=== PATIENT | male | born 2000 | race Caucasian/White ===

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

== ENCOUNTER 2020-04-08 10:49 | Emergency (ER) | payer OTHER, SELFPAY ==
[2020-04-08 11:00] VITALS: BP 182/90; PULSE 96; RESP 20; TEMP 37.2; O2SAT 100; BMI 35.9
--- NOTE | 2020-04-08 11:23 | HMH.EDUTC ---
[facility] [place] Clinical Impression: Encounter for laboratory testing for COVID-19 virus, Viral syndrome Disposition: Home, Self-Care Condition on Discharge: Good Instructions: DI for COVID-19 (Suspected or Confirmed ), Coronavirus Disease 2019, Preventing the Spread of Coronavirus Discharge Instructions Additional Instructions: *Monitor Temp, Over the counter Motrin or Tylenol as directed/as needed Tylenol every 4 hours and Motrin every 6 hours (as long as your family doctor has told you that you can take it) for fever or pain. and straight to ER if unable to lower temp less than 101.0 after medication given *Warm salt water gargles may help to soothe the throat *Throat Lozenges *Warm fluids like tea with honey may help to soothe the throat *Sleep elevated *Humidifier/Vaporizer Follow up IMMEDIATELY for new or worsening symptoms or no Noticeable improvement over the next 48-72 hours. 911 for difficulty breathing or swallowing You were tested for today for COVID19 your test result should be back in the next 24-48 hours, you may call to the [facility] to see if your test results are back in the next 48 hours [phone] [facility] hours are 9am-9pm You was given a handout with instructions for Self Quarantine and Self isolation for while you wait on test results and what to do if they are positive If you are positive the Health Dept will be contacting you also Your blood pressure was elevated in the [facility] make sure to follow up with your Family Doctor for re-evaluation Referrals: PCP,No [Primary Care Provider] - As needed Forms: Work/School Release Time of Disposition: 11:25 Medical Decision Making - Gt Inquiry Pt receiving controlled substance: No Gt was queried for this patient: No Vital Signs: 04/08/20 11:00 04/08/20 11:24 Temperature 98.9 F 98.9 F Temperature Source Oral Pulse Rate 96 H Pulse Rate [Right Brachial] 96 H Respiratory Rate 20 20 Blood Pressure 182/90 H Blood Pressure [Right Arm] 182/90 H Blood Pressure Mean [Right Arm] 120 Blood Pressure Source [Right Arm] Automatic Cuff Blood Pressure Position [Right Arm] Sitting 02 Sat by Pulse Oximetry 100 Oxygen Delivery Method Room Air Orders (Tests/Meds): ORDERS Category Date Time Status Covid-19 Nasal PCR Sendout [facility] Stat Lab 04/08/20 11:21 Ordered [facility] [place] HPI - General Stated complaint: covid test Time Seen by Provider: 04/08/20 11:23 Mode of Arrival: Ambulatory Source of Information: Patient Limitations: No Limitations Description of Symptoms (Recalled from Triage Doc. by RN): PATIENT C/O DIARRHEA 3 DAYS AGO, RUNNY NOSE, LEG PAIN, DRY COUGH, AND LOSS OF TASTE AND SMELL. 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 having body aches, chills, diarrhea, cough, runny nose and loss of taste and smell State that he was worried that he may have come in contact with someone with COVID so he cacme in to get tested - Related Data Allergies Allergy/AdvReac Type Severity Reaction Status Date / Time No Known Allergies Allergy Verified 06/17/17 06:27 - Worker's Comp Is this a Worker's Comp case?: No [facility] History - Hepatitis A Screen Drug use history?: No High risk sexual behaviors?: No History of sexually transmitted infection?: No Currently employed?: No Childcare worker?: No Do you have indoor plumbing?: Yes Do you have electricity?: Yes Attestation statement:: This patient has been screened for Hepatitis A risk factors. I have reviewed the patient's past medical history: Yes Medical History: Denies:: Cancer, MRSA Other Surgeries: Yes: No Previous Surgery Amputation: No - Social History Smoking Status: Never smok
[2020-04-08 11:24] VITALS: BP 182/90; PULSE 96; RESP 20; TEMP 37.2; O2SAT 100
[2020-04-09 11:04] LABS: Covid-19 Nasal PCR Sendout P&C NEGATIVE
== END 2020-04-08 11:30 | disposition home or self-care (01) ==
PROVIDERS: Emergency Provider Nurse Practitioner
DX: Z20.822 Contact with and (suspected) exposure to COVID-19 (principal); B34.9 Viral infection, unspecified
CPT/HCPCS: 99202; G0463; U0004

== ENCOUNTER 2020-12-20 15:36 | Emergency (ER) | payer OTHER, SELFPAY ==
[2020-12-20 16:04] VITALS: BP 128/84; PULSE 118; RESP 19; TEMP 37.3; O2SAT 98; BMI 34.3
[2020-12-20 16:12] LABS: UTC Strep Screen (Rapid) Positive (Negative)
--- NOTE | 2020-12-20 16:13 | HMH.EDUTC ---
[facility] [place] Clinical Impression: Strep throat Disposition: Home, Self-Care Condition on Discharge: Good Instructions: Strep Throat, DI for Strep Throat, DI for COVID-19 (Suspected or Confirmed ), Preventing the Spread of Coronavirus Discharge Instructions Additional Instructions: *Monitor Temp, Over the counter Motrin or Tylenol as directed/as needed Tylenol every 4 hours and Motrin every 6 hours (as long as your family doctor has told you that you can take it) for fever or pain. and straight to ER if unable to lower temp less than 101.0 after medication given *Warm salt water gargles may help to soothe the throat *Throat Lozenges *Warm fluids like tea with honey may help to soothe the throat *Sleep elevated *Humidifier/Vaporizer *If you did not take Penicillin shot or was unable to, start taking antibiotic immediately and make sure that you take it for the FULL length of time although you should start to feel better in 24-48 hours *change toothbrush and toothpaste 24-48 hours after starting to take antibiotics so you do not reinfect yourself Monitor Temp. Tylenol and/or Ibuprofen as needed. ER if fever is no less than 101 despite alternating Tylenol and Ibuprofen * Encourage fluids, water, Gatorade, powerade, pedialyte if /toddler/or child *Cold fluids, popsicles and ice cream may feel good on his throat Follow up IMMEDIATELY for new or worsening symptoms or no Noticeable improvement over the next 48-72 hours. 911 for difficulty breathing or swallowing You were tested for today for COVID19 your test result should be back in the next 24-48 hours, you was given handout for instructions on how to log onto the [facility] portal to see your results if you have trouble logging on you may call for your results You was given a handout with instructions for Self Quarantine and Self isolation for while you wait on test results and what to do if they are positive If you are positive the Health Dept will be contacting you also Make sure to take your Vitamins Vit. C Vit D and Zinc if you can take them Prescriptions: Amoxicillin [Amoxicillin 875MG Tab] 875 mg PO Q12H #20 tab Transmission Status: Pending to [facility] Ondansetron [Zofran 4mg ODT] 4 mg PO TIDP PRN #12 tab PRN Reason: Nausea Transmission Status: [facility] Referrals: Provider,Referral, MD [Primary Care Provider] - As needed Forms: Work/School Release Time of Disposition: 16:18 Medical Decision Making - Gt Inquiry Pt receiving controlled substance: No Gt was queried for this patient: No Vital Signs: 12/20/20 16:04 Temperature 99.1 F Temperature Source Temporal Artery Scan Pulse Rate [Left] 118 H Respiratory Rate 19 Blood Pressure [Right Arm] 128/84 Blood Pressure Mean [Right Arm] 98 02 Sat by Pulse Oximetry 98 - Lab Data Lab results reviewed: Yes: I reviewed the patient's lab results. Lab Results 12/20/20 16:04: Strep Scn Rapid Clinic Positive A Orders (Tests/Meds): ORDERS Category Date Time Status Covid-19 Nasal PCR ([facility]) Routine Lab 12/20/20 16:04 Ordered [facility] UTC HPI - General Stated complaint: headaches, vomiting x 4 days covid swab Time Seen by Provider: 12/20/20 16:13 Mode of Arrival: Ambulatory Source of Information: Patient Limitations: No Limitations Description of Symptoms (Recalled from Triage Doc. by RN): PT C/O LOSS OF SMELL, SORE THROAT, LOSS OF APPETITE, WATERMAN, PHOTOPHOBIA, N/V/D DRAINAGE, MYALGIA AND FEVER HEENT Symptoms (Recalled from RN notes): Yes (LOSS OF SMELL, SORE THROAT, WATERMAN, PHOTOPHOBIA, DRAINAGE) Resp Symptoms (Recalled from RN notes): No Skin Symptoms (Recalled from RN notes): No MS Symptoms (Recalled from RN notes): Yes (BODY ACHES) Functional Status (Recalled from RN notes): FEVER - History of Present Illness Provider Complaint: Patient states that he has not felt well for several days States that he has been having sore throat, runny nose, n/v and feel
[2020-12-20 16:23] VITALS: BP 128/85; PULSE 118; RESP 19; TEMP 37.3
--- NOTE | 2020-12-23 09:02 | PC.NURSE ---
informed patient that he is positive
== END 2020-12-20 16:26 | disposition home or self-care (01) ==
PROVIDERS: Emergency Provider Nurse Practitioner
DX: J02.0 Streptococcal pharyngitis (principal); U07.1 COVID-19
CPT/HCPCS: 87880; 99203; C9803; G0463; U0003; U0005

== ENCOUNTER 2021-03-24 14:44 | Emergency (ER) | payer OTHER, SELFPAY ==
[2021-03-24 15:19] VITALS: BP 169/96; PULSE 107; RESP 16; TEMP 36.9; O2SAT 98; BMI 36.6
--- NOTE | 2021-03-24 15:45 | HMH.EDGENADL ---
ED Disposition Clinical Impression: Abdominal discomfort Disposition: Home, Self-Care Condition on Discharge: Good Instructions: DI for Acute Abdominal Pain Referrals: Provider,Referral, [Primary Care Provider] - - Critical Care Critical Care Time: No Attestation: On 03/24/21, the high probability of a clinically significant, sudden or life threatening deterioration of the following system(s) required my full and direct attention, intervention and personal management. The time I documented below is in addition to time spent performing reported procedures but includes the following listed in this critical care notation. Medical Decision Making - Medical Records Medical records reviewed: Yes: I reviewed the patient's medical records. - Gt Inquiry Pt receiving controlled substance: No Vital Signs: 03/24/21 15:19 Temperature 98.4 F Temperature Source Oral Pulse Rate [Radial] 107 H Respiratory Rate 16 Blood Pressure [Right Arm] 169/96 H Blood Pressure Mean [Right Arm] 120 02 Sat by Pulse Oximetry 98 Oxygen Delivery Method Room Air - Lab Data Lab results reviewed: Yes: I reviewed the patient's lab results. Lab Results 03/24/21 16:32: WBC 9.1, RBC 5.78, Hgb 16.3, Hct 49.2, MCV 85.2, MCH 28.3, MCHC 33.2, RDW 14.7, Plt Count 285, MPV 10.0, Neut % (Auto) 69.7, Lymph % (Auto) 20.6, [place] % (Auto) 7.7, Eos % (Auto) 0.8, Baso % (Auto) 1.2, Neut # (Auto) 6.4, Lymph # (Auto) 1.9, [place] # (Auto) 0.7, Eos # (Auto) 0.1, Baso # (Auto) 0.1 03/24/21 16:32: Sodium 140, Potassium 4.0, Chloride 106, Carbon Dioxide 26, Anion Gap 12.0, BUN 17, Creatinine 0.90, Estimated Creat Clear 239, Estimated GFR 108, Est GFR ( Amer) 130, Glucose 115 H, Calcium 9.4, Total Bilirubin 0.7, AST 39, ALT 45, Alkaline Phosphatase 61, Total Protein 7.3, Albumin 4.5, Globulin 2.8, Albumin/Globulin Ratio 1.6, Lipase 59 03/24/21 16:32: Lactate 1.0 Result diagrams: 03/24/21 16:32 03/24/21 16:32 Orders (Tests/Meds): ED MEDICATIONS Generic Name Dose Route Start Last Admin Trade Name Freq PRN Reason Stop Dose Admin Lidocaine 1 each 03/24/21 16:00 03/24/21 16:39 Lidocaine 5% Transdermal Patch TP 04/23/21 15:59 1 each Q24H JIAN Administration Discontinued Medications Generic Name Dose Route Start Last Admin Trade Name Freq PRN Reason Stop Dose Admin Acetaminophen 1,000 mg 03/24/21 15:58 03/24/21 16:39 Acetaminophen 500mg Tab PO 03/24/21 15:59 1,000 mg ONCE ONE Administration Ketorolac Tromethamine 30 mg 03/24/21 15:58 Ketorolac 30mg/Ml Vial IM 03/24/21 15:59 ONCE ONE Ketorolac Tromethamine 15 mg 03/24/21 16:38 03/24/21 16:40 Ketorolac 30mg/Ml Vial IV 03/24/21 16:39 15 mg ONCE ONE Administration ORDERS Category Date Time Status UA [Urinalysis and Microscopic] Stat Lab 03/24/21 15:58 Ordered Medical Decision Narrative: Patient is a healthy 20-year-old male presenting with a chief complaint of burning left-sided abdominal pain. Patient is hemodynamically stable and afebrile on presentation though he is mildly tachycardic. Differential diagnosis includes, but is not limited to, pancreatitis, gastroenteritis, renal stone, urinary tract infection, pyelonephritis, lumbar back pain, herpes zoster. Exam shows a soft and nondistended abdomen. Patient has mild tenderness in the epigastrium and left upper quadrant and suprapubic region. Patient also has tenderness to palpation of the left lumbar/thoracic paraspinal muscles. Patient was evaluate CBC, CMP, lipase, lactate, and treated with IV Toradol and Tylenol and lidocaine patch. Lab work is within normal limits. On reassessment, patient continues to be well-appearing. He reports his symptoms have resolved. He has been able to tolerate p.o. in the emergency department. Patient was advised on supportive care at home, advised to establish care with a primary care provider and discharged in a stable condition. General Adult HPI
[2021-03-24 16:50] LABS: Basophils # 0.1 K/mm3 (0-0.2); Basophils % 1.2 % (0.1-2.0); Chloride 106 mmol/L (98-107); Eosinophils # 0.1 K/mm3 (0.0-0.4); Eosinophils % 0.8 % (0.1-12.0); Hematocrit 49.2 % (42.0-52.0); Hemoglobin 16.3 g/dL (14.1-18.0); Lymphocytes # 1.9 K/mm3 (0.7-4.5); Lymphocytes % 20.6 % (10-50); Mean Corpuscular HGB Conc 33.2 g/dL (31.8-35.4); Mean Corpuscular Hemoglobin 28.3 pg (27.0-31.2); Mean Corpuscular Volume 85.2 fl (80-94); Monocytes # 0.7 K/mm3 (0.1-1.0); Monocytes % 7.7 % (1.7-9.3); Neutrophils # 6.4 K/mm3 (1.8-7.8); Neutrophils % 69.7 % (37.0-80.0); Platelet Count 285 K/mm3 (142-424); Red Blood Count 5.78 M/mm3 (4.60-6.20); Red Cell Distribution Width 14.7 % (11.5-17.5); Sodium 140 mmol/L (136-145); White Blood Count 9.1 K/mm3 (4.5-13.0)
[2021-03-24 16:53] LABS: Alanine Aminotransferase 45 U/L (12-78); Albumin Level 4.5 g/dl (3.5-5.0); Albumin/Globulin Ratio 1.6 (1.1-1.8); Alkaline Phosphatase 61 U/L (38-126); Aspartate Amino Transferase 39 U/L (17-59); Bilirubin,Total 0.7 mg/dl (0.2-1.3); Blood Urea Nitrogen 17 mg/dl (9-20); Calcium 9.4 mg/dl (8.4-10.2); Carbon Dioxide 26 mmol/L (22.0-30.0); Creatinine Clearance Estimated 239 mL/min (50-200); Estimated Glomerular Filt Rate 108 ml/min (>60); GFR (African American) 130 ML/MIN (>60); Globulin 2.8 g/dL (1.3-3.2); Glucose 115 mg/dl (74-100); Lipase 59 U/L (23-300); Total Protein,Serum 7.3 g/dl (6.3-8.2)
[2021-03-24 18:53] LABS: Appearance,Urine CLEAR (Clear); Bilirubin,Urine Negative (Negative); Blood, Urine Negative (Negative); Color,Urine YELLOW (Yellow); Glucose,Urine (UA) Negative (Negative); Ketones,Urine Negative (Negative); Leukocyte Esterase,Urine Negative (Negative); Microscopic, Urine URINE MICROSCOPIC (MICROSCOPIC); Nitrate,Urine Negative (Negative); Protein,Urine Negative (Negative); Urobilinogen,Urine 0.2 EU/dl (0.2)
[2021-03-24 19:01] LABS: Bacteria,Urine Trace /lpf; Mucus,Urine 2+ /lpf
[2021-03-24 19:05] VITALS: BP 143/90; PULSE 74; RESP 18; TEMP 36.9; O2SAT 98
== END 2021-03-24 19:05 | disposition home or self-care (01) ==
PROVIDERS: Emergency Provider Emergency Medicine
DX: R10.32 Left lower quadrant pain (principal)
CPT/HCPCS: 80053; 81001; 83605; 83690; 85025; 96374; 99283

== ENCOUNTER 2022-11-02 15:06 | Emergency (ER) | payer OTHER, SELFPAY ==
[2022-11-02 15:25] VITALS: BP 148/88; PULSE 76; RESP 18; TEMP 36.9; O2SAT 98; BMI 32.1
--- NOTE | 2022-11-02 15:27 | XR_ITS ---
FINAL REPORT CLINICAL HISTORY: FALL 2 weeks ago, low back pain. FINDINGS: LUMBAR SPINE AP and lateral views were obtained. There is no acute fracture or subluxation. There is mild leftward curvature. Vertebrae are normal height. Prevertebral soft tissues are unremarkable. IMPRESSION: No acute bony abnormality. Reviewed, Interpreted and Dictated by Alex Rosales III, MD Transcribed by Ariela Monsalve Authenticated and [facility]
--- NOTE | 2022-11-02 15:40 | EXP.UTC ---
Discharge Plan Disposition Patient Disposition: Home, Self-Care Condition: Good Prescriptions Prescriptions: New methocarbamol 500 mg tablet 500 mg PO TID PRN (Reason: muscle spasm) Qty: 20 0RF ibuprofen 600 mg tablet 600 mg PO Q6HP PRN (Reason: Moderate Pain) Qty: 20 0RF No Action amoxicillin 875 MG tablet 875 mg PO Q12H Qty: 20 0RF ondansetron 4 MG tablet,disintegrating 4 mg PO TIDP PRN (Reason: Nausea) Qty: 12 0RF Referrals Follow up/Referrals: Provider,Referral, MD [Primary Care Provider] - See instructions Activity Restrictions/Add. Instructions Additional Instructions/Restrictions: *Ibuprofen gonzalez 6 hours with meal as needed for pain/inflammation *Remember you had a Toradol shot in the clinic today, which is similar to Motrin *Not additional anti-inflammatory like motrin, aleve, advil with the above amount of ibuprofen. You can still take Tylenol every 4 hours as needed if you need something else for pain *Ice 20 minutes every 2 hours for the first 48 hours after the initial injury followed by moist heat every 20 minutes 3-4 times a day to affected area *Muscle relaxer every 8 hours as needed for muscle spasms but remember, it WILL cause drowsiness You cannot take it and drive, operate machinery or care for small children. If you work do not take these while working take them when you get home before bed *Keep this area active, no movement leads to more stiffness, However take it easy and avoid heavy lifting pushing or pulling *Follow up with you family doctor if no improvement for further treatment Over the counter lidocaine patches and muscle rubs like biofreeze may help with pain Clinical Impressions Clinical Impression: Low back pain Qualifiers: Chronicity: unspecified Back pain laterality: midline Sciatica presence: without sciatica Qualified Code(s): M54.50 - Low back pain, unspecified Stand Alone Forms Stand Alone Forms: Work/School Release Discharge ED Provider: Kaela Calloway [facility] General Stated complaint: AO fall 10/19, dizzy, back pain Mode of Arrival: Ambulatory Source of Information: Patient Limitations: No Limitations Time Seen by Provider: 11/02/22 15:35 Description of Symptoms (Recalled from Triage Doc. by RN): PATIENT C/O DIZZINESS AND MID-LOW BACK PAIN X 4 MONTHS. REPORTS FALLING 2 WEEKS AGO HEENT Symptoms (Recalled from RN notes): Yes Resp Symptoms (Recalled from RN notes): No Skin Symptoms (Recalled from RN notes): No MS Symptoms (Recalled from RN notes): Yes Functional Status (Recalled from RN notes): WNL History of Present Illness Provider Complaint: Patient states that he has dizziness on and off for years but not having any dizziness right now States that also has been having pain in his lower back on and off for years and recently seen a Chiropractor States that a couple weeks ago he slipped on some steps and jerked his lower back and has been having pain and spasms on and off since States that it is worse at times with movement Denies loss of control of bowel or bladder Related Data Previous Rx's Medication Instructions Recorded amoxicillin 875 mg tablet 875 mg PO Q12H #20 tabs 12/20/20 ondansetron 4 mg disintegrating 4 mg PO TIDP PRN Nausea #12 tabs 12/20/20 tablet ibuprofen 600 mg tablet 600 mg PO Q6HP PRN Moderate Pain 11/02/22 #20 tabs methocarbamol 500 mg tablet 500 mg PO TID PRN muscle spasm #20 11/02/22 tabs Allergies Allergy/AdvReac Type Severity Reaction Status Date / Time No Known Allergies Allergy Verified 06/17/17 06:27 Worker's Comp Is this a Worker's Comp case?: No [facility] Disclaimer: The information contained in this section may have been updated after the patient was seen, as this information can be updated by other users. Social History Smoking Status: Never smoker alcohol intake: never current occupational status: other Travel in the last 8 weeks: None ROS Obtained: Yes All systems reviewed & no additional complaints except as documented and Yes Systems reviewed as appropriate & no additional complaints except as documented Constitutional Constitutional: Reports system reviewed and no additional complaints, except as documented and Reports as per HPI ENT Ears, Nose, Mouth, and Throat: Reports system reviewed and no additional complaints, except as documented, Reports as per HPI, Reports dizziness (on and off for years), Denies otalgia, Denies sinus pressure and Denies sore throat Cardiovascular Cardiovascular: Reports system reviewed and no additional complaints, except as documented and Reports as per HPI Respiratory Respiratory: Reports system reviewed and no additional complaints, except as documented and Reports as per HPI Gastrointestinal Gastrointestingal: Reports system reviewed and no additional complaints, except as documented and as per HPI Musculoskeletal Musculoskeletal: Reports system reviewed and no additional complaints, except as documented, Reports as per HPI and Reports back pain (low back pain) Integumentary/Breasts Skin/Breast: Reports system reviewed and no additional complaints, except as documented and Reports as per HPI Neurologic Neurologic: Reports dizziness (on and off for years) Physical Exam General General appearance: alert and in no apparent distress Respiratory Respiratory exam: Present normal lung sounds bilaterally; Absent respiratory distress or wheezes Cardiovascular Cardiovascular exam: Present regular rate, normal rhythm and normal heart sounds Back Exam Back 1 view image: 1. reports tenderness with palpation and feeling of spasms Denies radiation denies loss of control of bowel or bladder Neurological Exam Neurological exam: Present alert, oriented X3 and normal gait Medical Decision Making Gt Inquiry Pt receiving controlled substance: No Gt was queried for this patient: No Vital Signs: 11/02/22 15:25 Temperature 98.5 F Temperature Source Oral Pulse Rate [Left Brachial] 76 Respiratory Rate 18 Blood Pressure [Left Arm] 148/88 H Blood Pressure Mean [Left Arm] 108 Blood Pressure Source [Left Arm] Automatic Cuff Blood Pressure Position [Left Arm] Sitting 02 Sat by Pulse Oximetry 98 Oxygen Delivery Method Room Air Orders (Tests/Meds): ORDERS Category Date Time Status XR lumbar spine 2-3V Stat Exams 11/02/22 15:27 Ordered Radiology Data #1: Image(s): L-Spine Image Reviewed: Yes I have reviewed radiologist's interpretation No acute bony abnormality
[2022-11-02 17:06] VITALS: BP 148/88; PULSE 76; RESP 18; TEMP 36.9; O2SAT 98
== END 2022-11-02 17:10 | disposition home or self-care (01) ==
PROVIDERS: Emergency Provider Nurse Practitioner
DX: M54.50 Low back pain, unspecified (principal); M62.830 Muscle spasm of back; W01.10XA Fall on same level from slipping, tripping and stumbling with subsequent striking against unspecified object, initial encounter
CPT/HCPCS: 72100; 99212; 99214; G0463

== ENCOUNTER 2024-06-07 22:56 | Emergency (ER) | payer BC, SELFPAY ==
[2024-06-07 23:08] VITALS: BP 154/103; PULSE 94; RESP 18; TEMP 36.8; O2SAT 96; BMI 35.3
--- NOTE | 2024-06-07 23:09 | ECG_ITS ---
APPROVED REPORT Exam: Resting ECG HR:110 bpm ECG Measurements Heart Rate 110 AXES OK 162 P 57 QRSd 103 QRS 47 QT 324 T 14 QTc 389 Conclusion SINUS TACHYCARDIA NONSPECIFIC T-WAVE ABNORMALITY ABNORMAL RHYTHM ECG Electronically signed by : JEREL HUGHES, 06/08/2024 07:10:02
--- NOTE | 2024-06-07 23:14 | ED_ITS ---
Discharge Plan Disposition Patient Disposition: Home, Self-Care Prescriptions Prescriptions: New methocarbamol 500 mg tablet 500 mg PO Q6H PRN (Reason: pain) Qty: 30 0RF lidocaine 5 % adhesive patch,medicated 1 patch topical DAILY PRN (Reason: pain) Qty: 30 0RF Rx Instructions: leave on most painful area for up to 12 hrs potassium, sodium phosphates [Phosphorous Supplement] 280-160-250 mg powder in packet 1 packet PO QID 2 Days Qty: 100 0RF No Action amoxicillin 875 MG tablet 875 mg PO Q12H Qty: 20 0RF ondansetron 4 MG tablet,disintegrating 4 mg PO TIDP PRN (Reason: Nausea) Qty: 12 0RF methocarbamol 500 mg tablet 500 mg PO TID PRN (Reason: muscle spasm) Qty: 20 0RF ibuprofen 600 mg tablet 600 mg PO Q6HP PRN (Reason: Moderate Pain) Qty: 20 0RF Referrals Follow up/Referrals: Mnai Beltran II, MD [Staff Physician] - See instructions Provider,MD Jazmín [Primary Care Provider] - See instructions Activity Restrictions/Add. Instructions Additional Instructions/Restrictions: Recommend following up with your primary care provider and with our GI doctor for further assessment of your chronic diarrhea and weight loss. Clinical Impressions Clinical Impression: Right-sided chest wall pain Stand Alone Forms Stand Alone Forms: Work/School Release Print Language Print Language: [place] Discharge ED Provider: Reji Sepulveda Adult HPI General Chief complaint: Chest Pain Stated complaint: cp, green vomit, weight loss, dizziness Time Seen by Provider: 06/07/24 23:10 Mode of Arrival: Ambulatory Source of Information: Patient Description of Symptoms (Recalled from ER Triage Doc. by RN): Pt presents with c/o right sided chest pain that he has had for 1.5 weeks. Pt states he is not in any pain at this time. Pt also expresses concern that he has been feeling, dizzy, vomiting, and has had unintential weightloss. Pt states he was 300# at the beginning of the year and he is now 275#. Pt states that over the last month he has not had much of an appetite. History of Present Illness HPI narrative: 23-year-old male presents for multiple complaints. His primary complaint is right-sided chest pain, worse with breathing, worse with movement, worse with palpation. Additionally, has been trying to lose weight but has lost more than he was expecting over the last couple of months. Patient reports chronic diarrhea but feels like it is more mucousy than normal over the last few weeks. He often has blood when he wipes but sometimes has blood admixed within the stool itself. He denies any current abdominal pain. He also reports that he has been dizzy lately, especially with moving from a sitting to standing position. He reports that he has not been drinking enough water recently and feels dehydrated. He reports that he was previously a heavy drinker and quit drinking a few weeks ago. Denies any fever at home. Denies any cardiac or pulmonary history. 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 Related Data Previous Rx's ?Medication ?Instructions ?Recorded amoxicillin 875 mg tablet 875 mg PO Q12H #20 tabs 12/20/20 ondansetron 4 mg disintegrating 4 mg PO TIDP PRN Nausea #12 tabs 12/20/20 tablet ibuprofen 600 mg tablet 600 mg PO Q6HP PRN Moderate Pain 11/02/22 #20 tabs methocarbamol 500 mg tablet 500 mg PO TID PRN muscle spasm #20 11/02/22 tabs lidocaine 5 % topical patch 1 patch topical DAILY PRN pain #30 06/08/24 ea methocarbamol 500 mg tablet 500 mg PO Q6H PRN pain #30 tabs 06/08/24 potassium, sodium phosphates 280 1 packet PO QID 2 days #100 ea 06/08/24 mg-160 mg-250 mg oral powder packet (Phosphorous Supplement) Allergies Allergy/AdvReac Type Severity Reaction Status Date / Time No Known Allergies Allergy Verified 06/17/17 06:27 [facility] Disclaimer: The information contained in this section may have been updated after the patient was seen, as this information can be updated by other users. Social History Smoking Status: Never smoker alcohol intake: never current occupational status: other Travel in the last 8 weeks: None Other Medical History Have you received the Flu Vaccine for this season: No Have you received the Pneumonia Vaccine: No ROS Obtained: Yes All systems reviewed & no additional complaints except as documented Physical Exam General General appearance: alert and in no apparent distress Head Head exam: atraumatic and normocephalic Eye Eye exam: Present normal appearance, PERRL and EOMI ENT ENT exam: Present normal oropharynx and normal external ear exam Neck Neck exam: Present normal inspection and full ROM Chest Chest inspection: Present normal inspection, symmetric chest wall rise and tenderness (Right anterior chest wall) Respiratory Respiratory exam: Present normal lung sounds bilaterally; Absent respiratory distress Cardiovascular Cardiovascular exam: Present regular rate and normal rhythm Abdominal Exam Abdominal exam: Present soft; Absent distention, tenderness or guarding Extremities Exam Extremities exam: Present normal inspection; Absent edema or joint swelling Back Exam Back exam: Present normal inspection; Absent tenderness Neurological Exam Neurological exam: Present alert and oriented X3; Absent motor sensory deficit Psychiatric Psychiatric exam: Present normal affect and normal mood Skin Skin exam: Present warm, dry and normal color Lymphatic Lymphatic Findings: no adenopathy Medical Decision Making Medical Records Medical records reviewed: Yes I reviewed the patient's medical records. Screening: Per USPSTF and CDC recommendations, given the prevalence of disease in our region, it is our hospital?s policy to screen for HIV and viral Hepatitis for all patients aged 18 and over and those with ongoing risk factors. Gt Inquiry Pt receiving controlled substance: No Gt was queried for this patient: No Vital Signs: 06/07/24 23:08 06/07/24 23:45 06/08/24 00:00 Temperature 98.3 F Temperature Source Oral Pulse Rate 72 75 Pulse Rate [Right] 94 H Respiratory Rate 18 Blood Pressure 132/76 129/77 Blood Pressure [Right Arm] 154/103 H Blood Pressure Mean Blood Pressure Mean [Right Arm] 120 Blood Pressure Source [Right Arm] Automatic Cuff Blood Pressure Position [Right Arm] Sitting 02 Sat by Pulse Oximetry 96 96 97 Oxygen Delivery Method Room Air 06/08/24 00:15 06/08/24 00:15 06/08/24 00:50 Temperature 97.9 F Temperature Source Temporal Artery Scan Pulse Rate 77 79 Pulse Rate [Right] Respiratory Rate 18 Blood Pressure 138/84 136/84 Blood Pressure [Right Arm] Blood Pressure Mean 102 Blood Pressure Mean [Right Arm] Blood Pressure Source [Right Arm] Blood Pressure Position [Right Arm] 02 Sat by Pulse Oximetry 97 Oxygen Delivery Method Room Air Lab Data Lab results reviewed: Yes I reviewed the patient's lab results. Lab Results 06/07/24 23:19: WBC 7.4, RBC 5.32, Hgb 15.3, Hct 44.9, MCV 84.4, MCH 28.8, MCHC 34.1, RDW 13.2, Plt Count 219, MPV 12.9 H, Neut % (Auto) 68.0, Lymph % (Auto) 19.1, [place] % (Auto) 9.7 H, Eos % (Auto) 2.2, Baso % (Auto) 0.7, Neut # (Auto) 5.1, Lymph # (Auto) 1.4, [place] # (Auto) 0.7, Eos # (Auto) 0.2, Baso # (Auto) 0.1, Sodium 139, Potassium 3.6, Chloride 107, Carbon Dioxide 26, Anion Gap 9.6, BUN 12, Creatinine 1.10, Estimated Creat Clear 184, Estimated GFR 83, Est GFR ( Amer) 100, Glucose 131 H, Calcium 9.6, Phosphorus 2.3 L, Magnesium 1.8, Total Bilirubin 1.2, AST 41, ALT 54, Alkaline Phosphatase 74, Total Protein 7.1, Albumin 4.6, Globulin 2.5, Albumin/Globulin Ratio 1.8, Lipase 50, TSH 1.14, Thyroxine (T4) 9.8 06/07/24 23:19 06/07/24 23:19 Orders (Tests/Meds): ORDERS Category Date Time Status CXR 2 view (NOT portable) [XR chest 2V] Stat Exams 06/07/24 23:15 Completed CBC w/Auto Diff [Complete Blood Count Auto Diff] Stat Lab 06/07/24 23:19 Completed CMP [Comprehensive Metabolic Panel] Stat Lab 06/07/24 23:19 Completed Lipase Stat Lab 06/07/24 23:19 Completed Magnesium Stat Lab 06/07/24 23:19 Completed Phosphorous Stat Lab 06/07/24 23:19 Completed T4 (Thyroxine) Stat Lab 06/07/24 23:19 Completed TSH [Thyroid Stimulating Hormone] Stat Lab 06/07/24 23:19 Completed Medical Decision Narrative: 23-year-old male without significant past medical history presents for multiple complaints, primarily right-sided chest pain worse with palpation and movement, also complains of weight loss, acute on chronic diarrhea, intermittent vomiting, intermittent dizziness, generalized weakness. History was obtained via interactive discussion with patient. On arrival, patient is [afebrile, hemodynamically stable, satting appropriately, alert, oriented x4, GCS 15], moving all extremities spontaneously. Full physical exam performed and significant for focal right anterior chest tenderness, no right upper quadrant abdominal tenderness or abdominal pain of any kind. Differential includes but is not limited to musculoskeletal chest pain, pneumothorax, dehydration, electrolyte derangement, intra-abdominal pathology such as cholecystitis, IBS, IBD, celiac. Workup initiated including CBC CMP TSH T4 mag chest x-ray EKG lipase phosphorus. No indication for troponin, aspirin etc. as this does not appear to be cardiac. Patient has no history of PE, recent immobilization or surgery, hypoxia etc. to suggest PE. Much more consistent with musculoskeletal chest pain. No right upper quadrant tenderness to suggest hepatobiliary pathology On re-evaluation, patient [remains afebrile, HD stable.] Laboratory workup independently interpreted by me and significant for mild hypophosphatemia, otherwise completely normal.. Imaging independently interpreted by me and significant for clear lungs bilaterally without focal opacity or obvious rib fracture. See radiology read for full review of final results. EKG independently interpreted by me and significant for sinus tachycardia with rate of 110, no concerning ischemic changes, no evidence of arrhythmia Given patient history, exam and workup, patient's presentation most likely represents musculoskeletal chest pain, he was discharged with lidocaine patches and Robaxin prescription. The patient's more chronic symptoms may be reflective of underlying bowel disease of some kind, however there is no evidence of emergent pathology at this time that would require CT imaging. Given patient has been feeling weak and does have a borderline low phosphorus, I sent a couple of days of phosphorus replacement and instructed him to begin taking a daily multivitamin. Recommended he start drinking more water and try to stay better hydrated. I also recommended he establish care with a PCP and consider follow- up with our GI physician for further assessment given he has had chronic intermittently bloody diarrhea. Procedures Risk/Benefits of Procedure(s) Were Explained: Yes Critical Care Critical Care Time Critical Care Time: No
--- NOTE | 2024-06-07 23:15 | XR_ITS ---
PROCEDURE INFORMATION: Exam: XR Chest Exam date and time: 06/07/2024 11:13 PM Age: 23 years old Clinical indication: Pain; Chest pressure; Additional info: Right sided cp TECHNIQUE: Imaging protocol: Radiologic exam of the chest. Views: 2 views. COMPARISON: [id number] CT abdomen pelvis wo con 06/17/2017 6:49 AM FINDINGS: Lungs: Unremarkable. No consolidation. Pleural spaces: Unremarkable. No pleural effusion. No pneumothorax. Heart/Mediastinum: Unremarkable. No cardiomegaly. Bones/joints: Unremarkable. IMPRESSION: No acute findings.
[2024-06-07 23:40] LABS: Basophils # 0.1 K/mm3 (0-0.2); Basophils % 0.7 % (0.1-2.0); Eosinophils # 0.2 K/mm3 (0.0-0.4); Eosinophils % 2.2 % (0.1-12.0); Hematocrit 44.9 % (42.0-52.0); Hemoglobin 15.3 g/dL (14.1-18.0); Lymphocytes # 1.4 K/mm3 (0.7-4.5); Lymphocytes % 19.1 % (10-50); Mean Corpuscular HGB Conc 34.1 g/dL (31.8-35.4); Mean Corpuscular Hemoglobin 28.8 pg (27.0-31.2); Mean Corpuscular Volume 84.4 fl (80-94); Mean Platelet Volume 12.9 fl (7.4-10.4); Monocytes # 0.7 K/mm3 (0.1-1.0); Monocytes % 9.7 % (1.7-9.3); Neutrophils # 5.1 K/mm3 (1.8-7.8); Platelet Count 219 K/mm3 (142-424); Red Blood Count 5.32 M/mm3 (4.60-6.20); Red Cell Distribution Width 13.2 % (11.5-17.5); White Blood Count 7.4 K/mm3 (4.8-10.8)
[2024-06-07 23:45] VITALS: BP 132/76; PULSE 72; O2SAT 96
[2024-06-07 23:48] LABS: Albumin Level 4.6 g/dl (3.5-5.0); Chloride 107 mmol/L (98-107); Potassium 3.6 mmoL/L (3.5-5.1); Sodium 139 mmol/L (136-145)
[2024-06-07 23:51] LABS: Alanine Aminotransferase 54 U/L (12-78); Albumin/Globulin Ratio 1.8 (1.1-1.8); Alkaline Phosphatase 74 U/L (38-126); Anion Gap 9.6 mEq/L (5-15); Aspartate Amino Transferase 41 U/L (17-59); Bilirubin,Total 1.2 mg/dl (0.2-1.3); Blood Urea Nitrogen 12 mg/dl (9-20); Calcium 9.6 mg/dl (8.4-10.2); Carbon Dioxide 26 mmol/L (22.0-30.0); Creatinine Clearance Estimated 184 mL/min (50-200); Estimated Glomerular Filt Rate 83 ml/min (>60); GFR (African American) 100 ML/MIN (>60); Globulin 2.5 g/dL (1.3-3.2); Glucose 131 mg/dl (74-100); Total Protein,Serum 7.1 g/dl (6.3-8.2)
[2024-06-07 23:52] LABS: Lipase 50 U/L (23-300); Magnesium 1.8 mg/dl (1.6-2.3); Phosphorous 2.3 mg/dl (2.5-4.5)
[2024-06-08] VITALS: BP 129/77; PULSE 75; O2SAT 97
[2024-06-08 00:08] LABS: T4 (Thyroxine) 9.8 ug/dl (5.53-11.0)
[2024-06-08 00:15] VITALS: BP 138/84; PULSE 77; O2SAT 97
[2024-06-08 00:22] LABS: Thyroid Stimulating Hormone 1.14 uIU/mL (0.465-4.68)
[2024-06-08 00:50] VITALS: BP 136/84; PULSE 79; RESP 18; TEMP 36.6; O2SAT 99
== END 2024-06-08 00:56 | disposition home or self-care (01) ==
PROVIDERS: Emergency Provider Emergency Medicine
DX: R07.89 Other chest pain (principal); R19.7 Diarrhea, unspecified; R11.10 Vomiting, unspecified; R42 Dizziness and giddiness; R63.4 Abnormal weight loss; R53.1 Weakness
CPT/HCPCS: 71046; 80053; 83690; 83735; 84100; 84436; 84443; 85025; 93005; 99284

== ENCOUNTER 2024-09-25 00:53 | Emergency (ER) | payer BC, SELFPAY ==
[2024-09-25] VITALS (7 sets, daily range): BP systolic 134–165; BP diastolic 85–99; PULSE 78–131; RESP 16; TEMP 37.3; O2SAT 96–98; BMI 29.9
--- NOTE | 2024-09-25 00:55 | [facility].EDGENADL ---
Discharge Plan Disposition Patient Disposition: Home, Self-Care Prescriptions Prescriptions: New ondansetron HCl 4 mg tablet 4 mg PO Q8H PRN (Reason: nausea and vomiting) 5 Days Qty: 30 1RF No Action amoxicillin 875 MG tablet 875 mg PO Q12H Qty: 20 0RF ondansetron 4 MG tablet,disintegrating 4 mg PO TIDP PRN (Reason: Nausea) Qty: 12 0RF methocarbamol 500 mg tablet 500 mg PO TID PRN (Reason: muscle spasm) Qty: 20 0RF ibuprofen 600 mg tablet 600 mg PO Q6HP PRN (Reason: Moderate Pain) Qty: 20 0RF methocarbamol 500 mg tablet 500 mg PO Q6H PRN (Reason: pain) Qty: 30 0RF lidocaine 5 % adhesive patch,medicated 1 patch topical DAILY PRN (Reason: pain) Qty: 30 0RF Rx Instructions: leave on most painful area for up to 12 hrs potassium, sodium phosphates [Phosphorous Supplement] 280-160-250 mg powder in packet 1 packet PO QID 2 Days Qty: 100 0RF Referrals Follow up/Referrals: Mani Beltran II, MD [Staff Physician, Gastroenterology] - See instructions Provider,ReferralMD [Primary Care Provider, Medical] - See instructions Activity Restrictions/Add. Instructions Additional Instructions/Restrictions: Recommend establishing care with a primary care provider and working with them to see GI. Clinical Impressions Clinical Impression: Unexplained weight loss, Abdominal pain Instructions Patient Instructions: DI for Acute Abdominal Pain Print Language Print Language: Sinhala Discharge ED Provider: Reji Sepulveda Adult HPI General Chief complaint: Abdominal Pain Stated complaint: abd pain, vomiting, blood in stool Time Seen by Provider: 09/25/24 00:55 History of Present Illness HPI narrative: 24-year-old male presents for multiple complaints. He reports that he has had approximately 65 pound weight loss over the last 6 months. Unintentionally. He reports he is unable to eat because he gets nauseous and he is not ever hungry. He reports that he has intermittent bloody bowel movements. He reports intermittent abdominal pain. Reports that he has severe night sweats. He denies any lymphadenopathy, testicular abnormalities. Denies any significant drug use. Denies fever at home. He has been having these issues for a while but has not been able to follow-up with a doctor. Related Data Previous Rx's ?Medication ?Instructions ?Recorded amoxicillin 875 mg tablet 875 mg PO Q12H #20 tabs 12/20/20 ondansetron 4 mg disintegrating 4 mg PO TIDP PRN Nausea #12 tabs 12/20/20 tablet ibuprofen 600 mg tablet 600 mg PO Q6HP PRN Moderate Pain 11/02/22 #20 tabs methocarbamol 500 mg tablet 500 mg PO TID PRN muscle spasm #20 11/02/22 tabs lidocaine 5 % topical patch 1 patch topical DAILY PRN pain #30 06/08/24 ea methocarbamol 500 mg tablet 500 mg PO Q6H PRN pain #30 tabs 06/08/24 potassium, sodium phosphates 280 1 packet PO QID 2 days #100 ea 06/08/24 mg-160 mg-250 mg oral powder packet (Phosphorous Supplement) ondansetron HCl 4 mg tablet 4 mg PO Q8H PRN nausea and 09/25/24 vomiting 5 days #30 tabs Allergies Allergy/AdvReac Type Severity Reaction Status Date / Time No Known Allergies Allergy Verified 06/17/17 06:27 [facility] Disclaimer: The information contained in this section may have been updated after the patient was seen, as this information can be updated by other users. Social History Smoking Status: Current every day smoker alcohol intake: never current occupational status: other Travel in the last 8 weeks?: None Have you lived/traveled outside [place] in past 30 days?: No Contact w/someone who lives/traveled outside [place] past 30 days?: No Exposure to someone with infectious disease in past 14 days?: No Do you have a fever (greater than 100.4 F or 38 C)?: No Have you tested positive for COVID-19?: No Exposed to someone with COVID-19 in past 14 days?: No Do you have a sore throat?: No Do you have a cough?: No Do you have any weakness?: No Do you have any diarrhea?: No Are you experiencing any unusual bleeding?: Yes Do you have any muscle aches/pain?: No Do you have any abdominal pain?: Yes Are you experiencing loss of taste or smell?: No Other Medical History Have you received the Flu Vaccine for this season: No Have you received the Pneumonia Vaccine: No ROS Obtained: Yes All systems reviewed & no additional complaints except as documented Physical Exam General General appearance: alert and in no apparent distress Head Head exam: atraumatic and normocephalic Eye Eye exam: Present normal appearance, PERRL and EOMI ENT ENT exam: Present normal oropharynx and normal external ear exam Neck Neck exam: Present normal inspection and full ROM Chest Chest inspection: Present normal inspection and symmetric chest wall rise; Absent tenderness Respiratory Respiratory exam: Present normal lung sounds bilaterally; Absent respiratory distress Cardiovascular Cardiovascular exam: Present regular rate and normal rhythm Abdominal Exam Abdominal exam: Present soft and tenderness (Mild, generalized); Absent distention or guarding Extremities Exam Extremities exam: Present normal inspection; Absent edema or joint swelling Back Exam Back exam: Present normal inspection; Absent tenderness Neurological Exam Neurological exam: Present alert and oriented X3; Absent motor sensory deficit Psychiatric Psychiatric exam: Present normal affect and normal mood Skin Skin exam: Present warm, dry and normal color Lymphatic Lymphatic Findings: no adenopathy Medical Decision Making Medical Records Medical records reviewed: Yes I reviewed the patient's medical records. Screening: Per USPSTF and CDC recommendations, given the prevalence of disease in our region, it is our hospital?s policy to screen for HIV and viral Hepatitis for all patients aged 18 and over and those with ongoing risk factors. Gt Inquiry Pt receiving controlled substance: No Gt was queried for this patient: No Vital Signs: 09/25/24 01:06 09/25/24 01:30 09/25/24 02:00 Temperature 99.2 F Temperature Source Oral Pulse Rate 100 H 99 H Pulse Rate [Left Radial] 131 H Respiratory Rate 16 Blood Pressure 134/85 149/87 H Blood Pressure [Right Arm] 152/99 H Blood Pressure Mean 107 107 Blood Pressure Mean [Right Arm] 116 Blood Pressure Source [Right Arm] Automatic Cuff Blood Pressure Position [Right Arm] Sitting 02 Sat by Pulse Oximetry 98 97 97 Oxygen Delivery Method Room Air 09/25/24 02:30 09/25/24 03:00 09/25/24 03:30 Temperature Temperature Source Pulse Rate 94 H 83 83 Pulse Rate [Left Radial] Respiratory Rate Blood Pressure 145/85 H 156/86 H 165/87 H Blood Pressure [Right Arm] Blood Pressure Mean 105 114 109 Blood Pressure Mean [Right Arm] Blood Pressure Source [Right Arm] Blood Pressure Position [Right Arm] 02 Sat by Pulse Oximetry 97 98 98 Oxygen Delivery Method Lab Data Lab results reviewed: Yes I reviewed the patient's lab results. Lab Results 09/25/24 01:10: WBC 12.8 H, RBC 5.38, Hgb 15.4, Hct 45.5, MCV 84.6, MCH 28.6, MCHC 33.8, RDW 13.7, Plt Count 271, MPV 12.1 H, Neut % (Auto) 84.0 H, Lymph % (Auto) 10.2, [place] % (Auto) 5.0, Eos % (Auto) 0.2, Baso % (Auto) 0.3, Neut # (Auto) 10.7 H, Lymph # (Auto) 1.3, [place] # (Auto) 0.6, Eos # (Auto) 0.0, Baso # (Auto) 0.0, Sodium 141, Potassium 3.7, Chloride 102, Carbon Dioxide 24, Anion Gap 18.7 H, BUN 13, Creatinine 1.00, Estimated Creat Clear 170, Estimated GFR 92, Est GFR ( Amer) 111, Glucose 116 H, Calcium 10.0, Magnesium 1.7, Total Bilirubin 1.0, AST 43, ALT 43, Alkaline Phosphatase 66, Total Protein 7.5, Albumin 4.8, Globulin 2.7, Albumin/Globulin Ratio 1.8, Lipase 45, TSH 1.04, Thyroxine (T4) 11.4 H, HIV Ag/Ab Combo Qual Negative 09/25/24 02:54: Urine Color Yellow, Urine Appearance Clear, Urine pH 6.5, Ur Specific [place] 1.010, Urine Protein Negative, Urine Glucose (UA) Negative, Urine Ketones 1+, Urine Blood Negative, Urine Nitrate Negative, Urine Bilirubin Negative, Urine Urobilinogen 0.2, Ur Leukocyte Esterase Negative, Urine RBC None, Urine WBC Occasional, Ur Squamous Epith Cells Occasional, Calcium Oxalate Crystal Trace, Urine Bacteria Trace 09/25/24 01:10 09/25/24 01:10 Orders (Tests/Meds): ED MEDICATIONS Generic Name Dose Route Start Last Admin Trade Name Freq PRN Reason Stop Dose Admin Sodium Chloride 10 ml 09/25/24 02:10 09/25/24 02:11 Sodium Chloride 0.9% 10ml Syr (Rad Only) IV 10/25/24 02:09 10 ml NEEDED PRN Administration Maintain IV Site Discontinued Medications Generic Name Dose Route Start Last Admin Trade Name Freq PRN Reason Stop Dose Admin Acetaminophen 1,000 mg 09/25/24 01:02 09/25/24 01:29 Acetaminophen 500mg Tab PO 09/25/24 01:03 1,000 mg ONCE ONE Administration Belladonna Alkaloids 60 ml 09/25/24 01:02 09/25/24 01:29 Belladonna Alkaloids 60 Ml Ml PO 09/25/24 01:03 60 ml ONCE ONE Administration Lactated Ringer's 1,000 mls @ 999 mls/hr 09/25/24 01:15 09/25/24 01:29 Lactated Ringer's 1000 Ml Bag IV 09/25/24 02:15 999 mls/hr .Q1H1M JIAN Administration Iopamidol 75 ml 09/25/24 02:10 09/25/24 02:11 Iopamidol-370 (76%);100ml Bottle IV 09/25/24 02:11 75 ml ONCE ONE Administration Ondansetron HCl 4 mg 09/25/24 01:02 09/25/24 01:29 Ondansetron 4mg/2ml Vial IV 09/25/24 01:03 4 mg ONCE ONE Administration ORDERS Category Date Time Status CT abdomen pelvis w con Stat Cat Scan 09/25/24 01:02 Completed CXR --portable [XR chest portable] Stat Exams 09/25/24 01:05 Completed CBC w/Auto Diff [Complete Blood Count Auto Diff] Stat Lab 09/25/24 01:10 Completed CMP [Comprehensive Metabolic Panel] Stat Lab 09/25/24 01:10 Completed HIV Combo Stat Lab 09/25/24 01:10 Completed Lipase Stat Lab 09/25/24 01:10 Completed Magnesium Stat Lab 09/25/24 01:10 Completed T4 (Thyroxine) Stat Lab 09/25/24 01:10 Completed TSH [Thyroid Stimulating Hormone] Stat Lab 09/25/24 01:10 Completed UA [Urinalysis and Microscopic] Stat Lab 09/25/24 02:54 Completed ECG Data Tracing #1: I reviewed this ECG and interpreted as documented below: Sinus rhythm, rate of 90, no significant ischemic changes, no evidence of arrhythmia. ECG initial impression date: 09/25/24 ECG initial impression time: 01:27 Medical Decision Narrative: 24-year-old male without significant past medical history presents for multiple complaints, large weight loss, night sweats, early satiety, intermittent bloody bowel movements. History was obtained via interactive discussion with patient. On arrival, patient is [afebrile, hemodynamically stable, satting appropriately, alert, oriented x4, GCS 15], moving all extremities spontaneously. Full physical exam performed and significant for no significant physical exam abnormalities Differential includes but is not limited to malignancy, thyroid abnormality, inflammatory bowel disease, rheumatologic condition. Patient was given Tylenol, GI cocktail, Zofran for symptomatic management and correction of underlying abnormalities. Workup initiated including CBC CMP TSH T4 lipase UA CT abdomen pelvis with IV contrast. On re-evaluation, patient [remains afebrile, HD stable.] Laboratory workup independently interpreted by me and significant for minimal leukocytosis, normal differential, normal TSH, minimally elevated T4 (essentially normal), no significant electrolyte derangement. Imaging independently interpreted by me and significant for no evidence of intra-abdominal pathology. See radiology read for full review of final results. The underlying etiology of the patient's acute on chronic symptoms remains unclear. No evidence of malignancy or organ dysfunction on workup. I prescribed the patient Zofran for his nausea/early satiety. I recommended he follow-up with a PCP and potentially with GI for scope to assess his abdominal pain and intermittent bloody stools. Patient was agreeable to plan and discharged in stable condition. Procedures Risk/Benefits of Procedure(s) Were Explained: Yes Critical Care Critical Care Time Critical Care Time: No
--- NOTE | 2024-09-25 01:02 | ECG_ITS ---
APPROVED REPORT Exam: Resting ECG HR:90 bpm ECG Measurements Heart Rate 90 AXES NE 151 P 65 QRSd 98 QRS 66 QT 342 T 46 QTc 390 Conclusion SINUS RHYTHM WITH SINUS ARRHYTHMIA NORMAL ECG UNCONFIRMED REPORT Electronically signed by : TRINY FLORENTINO, 09/25/2024 04:57:48
--- NOTE | 2024-09-25 01:02 | CT_ITS ---
PROCEDURE INFORMATION: Exam: CT Abdomen And Pelvis With Contrast Exam date and time: 09/25/2024 1:54 AM Age: 24 years old Clinical indication: Abdominal pain; Additional info: Chronic abd pain, 60 lb weight loss, bloody stools TECHNIQUE: Imaging protocol: Computed tomography of the abdomen and pelvis with contrast. Radiation optimization: All CT scans at this facility use at least one of these dose optimization techniques: automated exposure control; mA and/or kV adjustment per patient size (includes targeted exams where dose is matched to clinical indication); or iterative reconstruction. Contrast material: ISOVUE; Contrast volume: 75 ml; Contrast route: IV; COMPARISON: CR XR CHEST 2V 06/07/2024 11:13 PM FINDINGS: Liver: Normal. No mass. Gallbladder and biliary ducts: Normal. No calcified stones. No ductal dilation. Pancreas: Normal. No ductal dilation. Spleen: Normal. No splenomegaly. Adrenal glands: Normal. No mass. Kidneys and ureters: Normal. No hydronephrosis. Stomach and bowel: Unremarkable. No obstruction. No mucosal thickening. Appendix: No evidence of appendicitis. Intraperitoneal space: Unremarkable. No free air. No significant fluid collection. Vasculature: Unremarkable. No abdominal aortic aneurysm. Lymph nodes: Unremarkable. No enlarged lymph nodes. Urinary bladder: Unremarkable as visualized. Reproductive: Unremarkable as visualized. Bones/joints: Unremarkable. No acute fracture. Soft tissues: Unremarkable. IMPRESSION: No acute findings.
--- NOTE | 2024-09-25 01:05 | XR_ITS ---
PROCEDURE INFORMATION: Exam: XR Chest Exam date and time: 09/25/2024 2:13 AM Age: 24 years old Clinical indication: Shortness of breath; Additional info: SOA, weight loss TECHNIQUE: Imaging protocol: Radiologic exam of the chest. Views: 1 view. COMPARISON: CR XR CHEST 2V 06/07/2024 11:13 PM FINDINGS: Lungs: Unremarkable. No consolidation. Pleural spaces: Unremarkable. No pleural effusion. No pneumothorax. Heart/Mediastinum: Unremarkable. No cardiomegaly. Bones/joints: Unremarkable. IMPRESSION: No acute findings.
[2024-09-25 01:15] LABS: Hematocrit 45.5 % (42.0-52.0); Hemoglobin 15.4 g/dL (14.1-18.0); Immature Granulocytes % 0.3 %; Mean Corpuscular HGB Conc 33.8 g/dL (31.8-35.4); Mean Corpuscular Hemoglobin 28.6 pg (27.0-31.2); Mean Corpuscular Volume 84.6 fl (80-94); Nucleated Red Blood Cells % 0 %; Platelet Count 271 K/mm3 (142-424); Red Blood Count 5.38 M/mm3 (4.60-6.20); Red Cell Distribution Width-SD 42.1 fL; White Blood Count 12.8 K/mm3 (4.8-10.8)
[2024-09-25] MEDS: ONDANSETRON 4MG/2ML VIAL 4 MG IV (01:29)
[2024-09-25] MEDS: LACTATED RINGERS 1000ML 1,000 ML 999 ML IV (01:29)
[2024-09-25] MEDS: BELLADONNA ALKALOIDS 60 ML ML PO (01:29)
[2024-09-25] MEDS: ACETAMINOPHEN 500MG TAB 1000 MG PO (01:29)
[2024-09-25] MEDS: SODIUM CHLORIDE 0.9% 10ML SYR (RAD ONLY) 10 ML IV (02:11)
[2024-09-25] MEDS: IOPAMIDOL-370 (76%);100ML BOTTLE 75 ML IV (02:11)
[2024-09-25 02:50] LABS: Alanine Aminotransferase 43 U/L (12-78); Albumin Level 4.8 g/dl (3.5-5.0); Albumin/Globulin Ratio 1.8 (1.1-1.8); Alkaline Phosphatase 66 U/L (38-126); Anion Gap 18.7 mEq/L (5-15); Aspartate Amino Transferase 43 U/L (17-59); Bilirubin,Total 1.0 mg/dl (0.2-1.3); Blood Urea Nitrogen 13 mg/dl (9-20); Calcium 10.0 mg/dl (8.4-10.2); Carbon Dioxide 24 mmol/L (22.0-30.0); Chloride 102 mmol/L (98-107); Creatinine Clearance Estimated 170 mL/min (50-200); Creatinine,Serum 1.00 mg/dl (0.66-1.25); Estimated Glomerular Filt Rate 92 ml/min (>60); GFR (African American) 111 ML/MIN (>60); Globulin 2.7 g/dL (1.3-3.2); Glucose 116 mg/dl (74-100); Lipase 45 U/L (23-300); Magnesium 1.7 mg/dl (1.6-2.3); Potassium 3.7 mmoL/L (3.5-5.1); Sodium 141 mmol/L (136-145); Total Protein,Serum 7.5 g/dl (6.3-8.2)
[2024-09-25 02:58] LABS: Microscopic, Urine URINE MICROSCOPIC (MICROSCOPIC)
[2024-09-25 03:07] LABS: T4 (Thyroxine) 11.4 ug/dl (5.53-11.0)
[2024-09-25 03:15] LABS: Bilirubin,Urine Negative (Negative); Color,Urine YELLOW (Yellow); Glucose,Urine (UA) Negative (Negative); Ketones,Urine 1+ (Negative); Leukocyte Esterase,Urine Negative (Negative); PH,Urine 6.5 (5.0-8.5); Protein,Urine Negative (Negative); Specific Gravity, Urine 1.010 (1.005-1.030); Urobilinogen,Urine 0.2 EU/dl (0.2)
[2024-09-25 03:21] LABS: Thyroid Stimulating Hormone 1.04 uIU/mL (0.465-4.68)
[2024-09-25 03:37] LABS: Bacteria,Urine Trace /lpf; Calcium Oxalate Crystals,Urine Trace /lpf; Squamous Epithelial Cell,Urine Occasional #/hpf (0-5); WBC,Urine Occasional #/hpf (0-3)
== END 2024-09-25 05:15 | disposition home or self-care (01) ==
PROVIDERS: Emergency Provider Emergency Medicine
DX: R10.84 Generalized abdominal pain (principal); R11.0 Nausea; R63.4 Abnormal weight loss; F17.210 Nicotine dependence, cigarettes, uncomplicated; Z11.4 Encounter for screening for human immunodeficiency virus [HIV]
CPT/HCPCS: 71045; 74177; 80053; 81001; 83690; 83735; 84436; 84443; 85025; 87389; 93005; 96361; 96374; 99285; J2405; J7120; Q9967